=== PATIENT | male | born 1985 | race Caucasian/White ===

== ENCOUNTER 2019-06-08 17:39 | Emergency (ER) | payer OTHER ==
[~2019-06-08] VITALS: Ht 170.2 cm; Wt 108.9 kg
--- NOTE | 2019-06-08 17:56 | PHYS DOC ---
Adult General Chief Complaint Chief Complaint: chest pain HPI HPI Patient is a 33-year-old male who presents with complaint of left-sided chest pain that started acutely approximately an hour prior to his arrival. Patient states that he was driving his car when he took a deep breath and all of a sudden felt a pop in his chest and suddenly felt severe stabbing pain to the left side of his chest that he rated as a 10 out of 10. EMS was called and patient was given a dose of fentanyl IV and pain went down to a 5 out of 10. Patient denies any cough or shortness of breath. He states that pain is worsened with breathing so he is been taking shallow breaths. He denies any recent injuries. He also denies any history of blood clots, leg pain or swelling.[] (NILA VENTURA Jr. DO) Review of Systems Review of Systems Constitutional: Denies fever or chills [] Respiratory: Denies cough or shortness of breath [] Cardiovascular: No additional information not addressed in HPI [] GI: Denies abdominal pain, nausea, vomiting or diarrhea [] Integument: Denies rash or skin lesions [] Neurologic: Denies headache, focal weakness or sensory changes [] All other systems were reviewed and found to be within normal limits, except as documented in this note. (NILA VENTURA Jr. DO) Current Medications Current Medications Current Medications Medications (Trade) Dose Ordered Sig/Rekha Start Time Stop Time Status Last Admin Dose Admin Ketorolac Tromethamine (Toradol 30mg Vial) 30 mg 1X ONCE 06/08/19 18:00 06/08/19 18:01 DC 06/08/19 18:09 30 MG Sodium Chloride 1,000 ml @ 1,000 mls/hr Q1H 06/08/19 18:00 06/08/19 18:59 DC 06/08/19 18:09 1,000 MLS/HR (SEVERO VALENCIA MD) Allergies Allergies Allergies Coded Allergies Type Severity Reaction Last Updated Verified codeine Adverse Reaction Unknown 06/08/19 Yes (SEVERO VALENCIA MD) Physical Exam Physical Exam Constitutional: Well developed, well nourished, no acute distress, non-toxic appearance. [] HENT: Normocephalic, atraumatic, bilateral external ears normal, oropharynx moist, no oral exudates, nose normal. [] Eyes: PERRLA, EOMI, conjunctiva normal, no discharge. [] Neck: Normal range of motion, no tenderness, supple. [] Cardiovascular: Regular rate and rhythm with reproducible tenderness along the left sternal border.[] Lungs & Thorax: Bilateral breath sounds clear to auscultation [] Abdomen: Bowel sounds normal, soft, no tenderness. [] Skin: Warm, dry, no erythema, no rash. [] Extremities: No tenderness, no cyanosis, no clubbing, ROM intact, no edema. [] Neurologic: Alert and oriented X 3, no focal deficits noted. [] (NILA VENTURA Jr. DO) Current Patient Data Vital Signs Vital Signs Date Time Temp Pulse Resp B/P (MAP) Pulse Ox O2 Delivery O2 Flow Rate FiO2 06/08/19 17:56 97.9 95 16 95 Room Air 97.9 (SEVERO VALENCIA MD) Lab Values Laboratory Tests Test 06/08/19 18:01 06/08/19 18:10 White Blood Count 10.7 x10^3/uL (4.0-11.0) Red Blood Count 5.01 x10^6/uL (4.30-5.70) Hemoglobin 15.5 g/dL (13.0-17.5) Hematocrit 44.2 % (39.0-53.0) Mean Corpuscular Volume 88 fL (79-100) Mean Corpuscular Hemoglobin 31 pg (25-35) Mean Corpuscular Hemoglobin Concent 35 g/dL (31-37) Red Cell Distribution Width 12.7 % (11.5-14.5) Platelet Count 321 x10^3/uL (140-400) Neutrophils (%) (Auto) 61 % (31-73) Lymphocytes (%) (Auto) 27 % (24-48) Monocytes (%) (Auto) 9 % (0-9) Eosinophils (%) (Auto) 3 % (0-3) Basophils (%) (Auto) 1 % (0-3) Neutrophils # (Auto) 6.5 x10^3/uL (1.8-7.7) Lymphocytes # (Auto) 2.8 x10^3/uL (1.0-4.8) Monocytes # (Auto) 1.0 x10^3/uL (0.0-1.1) Eosinophils # (Auto) 0.3 x10^3/uL (0.0-0.7) Basophils # (Auto) 0.1 x10^3/uL (0.0-0.2) Sodium Level 145 mmol/L (136-145) Potassium Level 3.9 mmol/L (3.5-5.1) Chloride Level 106 mmol/L (98-107) Carbon Dioxide Level 25 mmol/L (21-32) Anion Gap 14 (6-14) Blood Urea Nitrogen 18 mg/dL (8-26) Creatinine 0.9 mg/dL (0.7-1.3) Estimated GFR (Cockcroft-Gault) 98.4 BUN/Creatinine Ratio 20 (6-20) Glucose Level 102 mg/dL (70-99) H Calcium Level 9.9 mg/dL (8.5-10.1) Magnesium Level 2.1 mg/dL (1.8-2.4) Total Bilirubin 0.3 mg/dL (0.2-1.0) Aspartate Amino Transferase (AST) 48 U/L (15-37) H Alanine Aminotransferase (ALT) 127 U/L (16-63) H Alkaline Phosphatase 95 U/L (46-116) Troponin I Quantitative < 0.017 ng/mL (0.000-0.055) Total Protein 6.8 g/dL (6.4-8.2) Albumin 4.2 g/dL (3.4-5.0) Albumin/Globulin Ratio 1.6 (1.0-1.7) D-Dimer (Galina) < 0.27 ug/mlFEU Laboratory Tests 06/08/19 18:01 Laboratory Tests 06/08/19 18:01 (SEVERO VALENCIA MD) EKG EKG [] (NILA VENTURA Jr., DO) Radiology/Procedures Radiology/Procedures [] (NILA VENTURA Jr., DO) Course & Med Decision Making Course & Med Decision Making Pertinent Labs and Imaging studies reviewed. (See chart for details) Patient moved to room upon arrival was evaluated by your medical staff after which an IV was established and blood work was drawn. At this time, patient's workup is pending and patient is being signed out to the oncoming ER physician at 6:00 PM. (VENTURA,NILA D Jr. DO) Course & Med Decision Making Patient's care transferred to tx at 1800. Patient had reproducible chest wall pain and treated with IV fluid and Toradol. Patient had unremarkable labs including d-dimer and cardiac enzyme and electrolyte. EKG and chest x-ray was un remarkable. Plan discharge patient home with diagnosis of chest wall pain. (SEVERO VALENCIA MD) Dragon Disclaimer Dragon Disclaimer This electronic medical record was generated, in whole or in part, using a voice recognition dictation system. (NILA VENTURA Jr. DO) Departure Departure Impression: Primary Impression: Chest wall pain Disposition: HOME, SELF-CARE (at 1922) Condition: STABLE Patient Instructions: Chest Wall Pain Additional Instructions: Drink plenty of liquids Follow-up with your primary care physician in 3-5 days Return to ER if not getting better Apply ice on the affected area Thank you for visiting [facility]. We appreciate you trusting us with your care. If any additional problems come up don't hesitate to return to visit us. Please follow up with your primary care provider so they can plan additional care if needed and know about the problem that you had. If symptoms worsen come back to the Emergency Department. Any concerning symptoms that start such as chest pain, shortness of air, weakness or numbness on one side of the body, running high fevers or any other concerning symptoms return to the ER. Scripts Naproxen (NAPROSYN) 500 Mg Tablet 1 TAB PO BID for pain, #20 TAB Prov: SEVERO VALENCIA MD 06/08/19 Cyclobenzaprine Hcl (CYCLOBENZAPRINE HCL) 10 Mg Tablet 1 TAB PO TID, #21 TAB Prov: SEVERO VALENCIA MD 06/08/19 NILA VENTURA Jr. DO Jun 08, 2019 17:56 SEVERO VALENCIA MD Jun 08, 2019 19:25
[2019-06-08] MEDS ORDERED: IV NORMAL SALINE 1000ML BAG 1,000 ML IV SCH (18:00)
[2019-06-08] MEDS ORDERED: KETOROLAC 30 MG/ML VIAL. IVP ONE (18:00)
[2019-06-08 18:14] LABS: BASO # 0.1 x10^3/uL (0.0-0.2); BASO % 1 % (0-3); EOS # 0.3 x10^3/uL (0.0-0.7); EOS % 3 % (0-3); HEMATOCRIT 44.2 % (39.0-53.0); HEMOGLOBIN 15.5 g/dL (13.0-17.5); LYMPH # 2.8 x10^3/uL (1.0-4.8); LYMPH % 27 % (24-48); MEAN CORPUSCULAR HEMOGLOBIN 31 pg (25-35); MEAN CORPUSCULAR HGB CONC 35 g/dL (31-37); MEAN CORPUSCULAR VOLUME 88 fL (79-100); MONO % 9 % (0-9); NEUT # 6.5 x10^3/uL (1.8-7.7); NEUT % 61 % (31-73); PLATELET COUNT 321 x10^3/uL (140-400); RED BLOOD COUNT 5.01 x10^6/uL (4.30-5.70); RED CELL DISTRIBUTION WIDTH 12.7 % (11.5-14.5); WHITE BLOOD COUNT 10.7 x10^3/uL (4.0-11.0)
[2019-06-08 18:19] LABS: CALCIUM 9.9 mg/dL (8.5-10.1); CREATININE 0.9 mg/dL (0.7-1.3); GFR 98.4; POTASSIUM 3.9 mmol/L (3.5-5.1)
[2019-06-08 18:25] LABS: ALBUMIN 4.2 g/dL (3.4-5.0); ALBUMIN/GLOBULIN RATIO 1.6 (1.0-1.7); MAGNESIUM 2.1 mg/dL (1.8-2.4); TOTAL BILIRUBIN 0.3 mg/dL (0.2-1.0); TOTAL PROTEIN 6.8 g/dL (6.4-8.2)
[2019-06-08] MEDS ORDERED: NAPR-683 PO (19:24)
[2019-06-08] MEDS ORDERED: CYCL10TA2 PO (19:24)
--- NOTE | 2019-06-08 19:30 | RAD ---
PORTABLE CHEST 1V INDICATION: Chest pain. COMPARISON STUDY: None. FINDINGS: Lungs: Low lung volume. No pulmonary mass or consolidation. The tracheobronchial tree and hilar structures are normal. Pleura: No pleural effusion or pneumothorax. Heart and Mediastinum: The cardiomediastinal silhouette is normal. The great vessels of the thorax are normal. IMPRESSION: Low lung volume. No consolidation. Electronically signed by: Ronny Grewal MD (06/08/2019 7:27 PM) [facility]
[2019-06-08 19:44] VITALS: BP 125/78
--- NOTE | 2019-06-09 09:10 | EKG ---
[facility] [address] [place] [address] Test Date: 2019-06-08 Test Time: 17:59:09 Pat Name: RAMIN JEWELL Department: Room: Gender: Product Marketing Consultant: WESLY : 1985 Requested By: NILA VENTURA Order Number: [id number] Reading MD: Measurements Intervals [place] Rate: 70 P: 19 SD: 154 QRS: 19 QRSD: 78 T: 7 QT: 356 QTc: 387 Interpretive Statements SINUS RHYTHM NO SPECIFIC ECG ABNORMALITIES RI6.01 No previous ECG available for comparison
== END 2019-06-08 19:40 | disposition home or self-care (01) ==
LOC: ER 17:39
DX: R07.89 Other chest pain (principal); Z88.5 Allergy status to narcotic agent
CPT/HCPCS: 36415; 71045; 80053; 83735; 84484; 85025; 85379; 93005; 96374; 99285; J1885; J7030